=== PATIENT | female | born 1990 | race Caucasian/White ===

== ENCOUNTER 2018-11-11 09:22 | Emergency (ER) | payer BC ==
[~2018-11-11] VITALS: Ht 154.9 cm; Wt 50.8 kg
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
[~2018-11-11 09:22] MED LIST: NORCO 5-325 TA1 EACH PO; VALIUM5 MG PO
--- OUTSIDE RECORDS SUMMARY | 2018-11-11 09:24 | XMS ---
PreManage Notification: NUBIA AHUJA Security Candy [employer] Printer Events No recent Security Events currently on file CRITERIA MET - PDMP CARE PROVIDERS RONNA ROUSSEAU Nurse Practitioner: Family Current (SLASHER HAND) ELICEO PHONE: Unknown Eneida has no Care Guidelines for this patient. ENicki VISIT COUNT (12 MO.) 1 ADWOA Eli TOTAL 1 NOTE: Visits indicate total known visits. ED/UCC VISIT TRACKING (12 MO.) 11/11/2018 09:23 ADWOA Dye [place] TYPE: Emergency COMPLAINT: - LACERATION ABOVE R EYE INPATIENT VISIT TRACKING (12 MO.) No inpatient visits to display in this time frame [id number]
[2018-11-11] MEDS ORDERED: BUPRENORPHN-NA1 EACH SL (09:40)
[2018-11-11] MEDS ORDERED: LAMOTRIGINE200 M1 PO (09:40)
== END 2018-11-11 10:45 | disposition home or self-care (01) ==
LOC: ED 09:22
DX: S01.111A Laceration without foreign body of right eyelid and periocular area, initial encounter (principal); W01.198A Fall on same level from slipping, tripping and stumbling with subsequent striking against other object, initial encounter; F17.200 Nicotine dependence, unspecified, uncomplicated; Z79.899 Other long term (current) drug therapy
CPT/HCPCS: 12013; 99282-25

== ENCOUNTER 2020-05-25 07:30 | Day surgery (SDC) | payer BC, OTHER ==
[~2020-05-25] VITALS: Ht 154.9 cm; Wt 54.9 kg
[~2020-05-25 07:30] MED LIST changes: +BUPRENORPHN-NA1 EACH SL; +LAMOTRIGINE200 M1 PO; +SPIRONOLACTONE50 MG PO; +WELLBUTRIN SR150 MG PO
--- NOTE | 2020-05-25 09:44 | NUR ---
05/25/20 0944 Sheets,Debby 0935 PT ARRIVED TO PACU ON 6L VIA MASK, VSS. PT REACTIVE TO TACTILE STIMULI. 0940 PT REORIENTED TO PACU AND DENIES PAIN AND NAUSEA. O2 MASK REMOVED. ABD SOFT AND PT ENCOURAGD TO PASS GAS.
--- NOTE | 2020-05-25 10:41 | NUR ---
PT ALERT, ORIENTED AND HERE FOR HER FIRST SCOPE. PT'S SIS WILL PICK HER UP FOLLOWING DC. PT EXPRESSED SOME ANXIETY ABOUT HOW SHE MIGHT WAKE UP FROM PREVIOUS SURGERY. INFORMED DIMPLE PHILLIPS, HE WILL FOLLOW UP. PT REQUESTED PRAYER WILL FOLLOW
--- NOTE | 2020-05-25 10:47 | OR ---
[facility] [address], [place] [address] Signed DATE OF OPERATION: 05/25/2020 SURGEON: Maxi Meneses MD PREOPERATIVE DIAGNOSES: 1. Constipation. 2. Retropubic abdominal pain. 3. Intermittent diarrhea. 4. Rectal bleeding. 5. Hemorrhoids. POSTOPERATIVE DIAGNOSES: 1. Mild to moderate melanosis coli. 2. Minimal to moderate internal hemorrhoids. PROCEDURE: Colonoscopy with random cold biopsies. ESTIMATED BLOOD LOSS: None. 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 She has been able to get off that around 2017 or 2018. The heroin does constipate , but her constipation never went away when she stopped the heroin. She has tried MiraLAX, fiber, prunes and everything else she can think of. She is now using an Ex-Lax multiple tablets every day to produce bowel movements. She is even using enemas. She has no family history of colon cancer or polyps. There is no inflammatory bowel disease in the family. She has one son who was born vaginally. She had been to see her women's health provider. She was asked to see me with respect to the above. I had met with Malissa in the office and reviewed the above findings. She just came to rehab here in [place], [place]. Specifically, she is on Suboxone. Consequently, she insists she does not want Versed or any narcotics such as fentanyl. Consequently, we have had an anesthesia provider to help us today with infusion of propofol. Indeed, she had quite a bit of propofol. She understands colonoscopy quite well. She understands there is risk including, but not limited to gas bloating, crampy abdominal pain, bleeding, perforation requiring surgery, and missed diagnosis. We also ordered a Sitzmark test to evaluate for colonic inertia. She had expressed understanding and wished to proceed. DESCRIPTION OF PROCEDURE: Electronically Signed By: MAXI MENESES MD 05/25/20 1047 PATIENT NAME: MALISSA AHUJA OPERATIVE REPORT DATE OF : 86 REPORT #: [id number] PHYSICIAN: MAXI MENESES MD PCP: CHARLENE VERAS REPORT IS CONFIDENTIAL AND NOT TO BE RELEASED WITHOUT AUTHORIZATION [facility] [address], [place] [address] Signed Malissa was taken into our endoscopy suite and placed in the left lateral decubitus position. She was given IV sedation per our nurse pens and pencils repairer with propofol. A digital rectal exam was performed and she has good sphincter tone. Not much really in the way of external hemorrhoids. The adult colonoscope was then introduced and advanced all around in the cecum under direct visualization of camera without difficulty. Her prep was good. We could see the ileocecal valve and the base of the cecum. The scope was slowly withdrawn. Pictures were taken throughout for photodocumentation. We could easily see the classic tiger striping throughout the colon and rectum associated with melanosis coli and her Ex-Lax. Currently, it is mild to moderate in nature. We took several random cold biopsies throughout for documentation. No evidence of any polyps or diverticulosis. Once in the rectum, the scope was retroflexed and indeed she has minimal to moderate internal hemorrhoid columns. After this, the gas was suctioned out and the colonoscope removed. Malissa tolerated the procedure quite well. RECOMMENDATIONS: I will see Malissa back in my office in 7 to 14 days to review her colonoscopy results as well as a Sitzmark test. She may need additional formal testing through colorectal surgery. Maxi Meneses MD ALB/MODL /[id number] cc: MD Charlene Call NP Copies: MAXI MENESES MD ~ Electronically Signed By: MAXI MENESES MD 05/25/20 1047 PATIENT NAME: MALISSA AHUJA OPERATIVE REPORT DATE OF : 86 REPORT #: [id number] PHYSICIAN: MAXI MENESES MD PCP: CHARLENE VERAS REPORT IS CONFIDENTIAL AND NOT TO BE RELEASED WITHOUT AUTHORIZATION
--- NOTE | 2020-05-26 17:50 | PATH ---
[facility] [address], [place] [address] Signed SPECIMEN(S): A COLON BIOPSY SPECIMEN SOURCE: A. COLON BIOPSY CLINICAL HISTORY: Colonoscopy. Preop: History of constipation/diarrhea. MICROSCOPIC DESCRIPTION: Histologic sections of all submitted blocks are examined by light microscopy. These findings, together with the gross examination, support the pathologic diagnosis. FINAL PATHOLOGIC DIAGNOSIS: Colon, biopsy: - Colonic mucosa with no significant pathologic changes. BRP:cml:C2NR GROSS DESCRIPTION: The specimen, labeled "AB, #1," and designated on the requisition "colon," is received in formalin and consists of three calzada soft tissue fragments that measure 0.4 cm in greatest dimension. The specimen is entirely submitted in cassette (A1). AT (under the direct supervision of a pathologist) The Gross Description was prepared using a voice recognition system. The report was reviewed for accuracy; however, sound-alike word errors, addition and/or deletions may occur. If there is any question about this report, please contact Client Services. PERFORMING LABORATORY: The technical component was performed by [facility], [address] [place] [id number] (Maintenance Tech: Maida Petersen MD; CLIA# [id number]). Professional interpretation was performed by [facility], [facility], [address] [address] (CLIA# [id number]). Diagnostician: Jose L Langford MD Pathologist Electronically Signed 05/26/2020 Copies: PATIENT NAME: NUBIA AHUJA PATHOLOGY DATE OF : 86 REPORT #: [id number] PHYSICIAN: [facility] PCP: LILLY VERAS REPORT IS CONFIDENTIAL AND NOT TO BE RELEASED WITHOUT AUTHORIZATION [address] [address] Signed ~ PATIENT NAME: NUBIA AHUJA PATHOLOGY DATE OF : 86 REPORT #: [id number] PHYSICIAN: [facility] PCP: LILLY VERAS REPORT IS CONFIDENTIAL AND NOT TO BE RELEASED WITHOUT AUTHORIZATION
== END 2020-05-25 10:10 | disposition home or self-care (01) ==
LOC: OPS 07:30 → DS 07:30 → OPS 08:15 → DS 09:15 → OPS 09:15
PROVIDERS: ATTEND Colon & Rectal Surgery
PROC: 0DBE8ZX Excision of Large Intestine, Via Natural or Artificial Opening Endoscopic, Diagnostic (ICD-10-PCS; principal; 2020-05-25 08:15)
DX: K64.8 Other hemorrhoids (principal); Z79.899 Other long term (current) drug therapy
CPT/HCPCS: J2001; J2704; J7121